=== PATIENT | female | born 1975 | race African-American/Black ===

== ENCOUNTER 2017-11-30 13:52 | Emergency (ER) | payer OTHER ==
[~2017-11-30] VITALS: Ht 170.2 cm; Wt 181.4 kg
[~2017-11-30 13:52] MED LIST: IBUPROFEN800 M1 PO; ULTRAM50 M1 PO
[2017-11-30 15:22] LABS: ABSOLUTE BASOPHIL COUNT 0 /CUMM (0.0-0.2); ABSOLUTE EOSINOPHIL COUNT 0 /CUMM (0.0-0.7); ABSOLUTE GRANULOCYTE CT 10.5 /CUMM (1.4-6.5); ABSOLUTE LYMPH COUNT 1.3 /CUMM (1.2-3.4); ABSOLUTE MONOCYTE COUNT 0.1 /CUMM (0.10-0.60); BASOPHIL % 0.2 % (0.0-2.0); EOSINOPHIL % 0 % (0-5); HEMATOCRIT 40.5 % (37-47); MEAN CORPUSCULAR HGB 28.2 PG (27.0-31.0); MEAN CORPUSCULAR VOLUME 85.5 FL (81.0-99.0); MEAN PLATELET VOLUME 9.9 FL (7.4-10.4); PLATELET COUNT 208 /CUMM (130-400); RBC DISTRIBUTION WIDTH 14.5 % (11.5-14.5); RED BLOOD CELL CT 4.73 /CUMM (4.20-5.40); WHITE BLOOD CELL COUNT 11.9 /CUMM (4.8-10.8)
[2017-11-30 15:24] LABS: GRANULOCYTE % 88.4 % (42.2-75.2)
[2017-11-30] MEDS ORDERED: ALEVE220 M2 PO (15:40)
--- NOTE | 2017-11-30 15:52 | ED GI/GU/ABDOMINAL COMPLAINT ---
History of Present Illness General Chief Complaint: General Adult Stated Complaint: MULTIPLE COMPLAINTS "CARLOS MANUEL BEEN DRINKING LAST NIGHT" Source: patient, family Exam Limitations: no limitations Vital Signs & Intake/Output Vital Signs & Intake/Output Vital Signs Date Time Temp Pulse Resp B/P B/P Pulse O2 O2 Flow FiO2 Mean Ox Delivery Rate 11/30 1618 98.3 70 18 143/73 98 Room Air 11/30 1404 97.3 71 18 185/98 99 Room Air Room Air Allergies Coded Allergies: NO KNOWN ALLERGIES (06/10/12) Reconcile Medications Ibuprofen 800 MG TABLET 1 TAB PO TID pain Naproxen Sodium (Aleve) 220 MG TABLET 2 TAB PO PRN PAIN (Reported) Oxycodone HCl/Acetaminophen (Percocet 5-325 MG Tablet) 5 MG-325 MG TABLET 1-2 TAB PO BID pain Tamsulosin HCl (Flomax) 0.4 MG CAP.ER.24H 1 CAP PO DAILY kidney stone Triage Note: PT TO ED WITH FAMILY WITH C/O LEFT ABD PAIN,NAUSEA AND VOMITING SINCE 0600, DENIES DIARRHEA. Triage Nurses Notes Reviewed? yes LMP (ages 10-50): date (11/23/17) ? N Is pt currently ? No Onset: Morning Duration: hour(s):, constant Timing: multiple episodes today Quality/Severity: stabbing Severity Numbers: 10 Location: epigastric, left lower quadrant, left upper quadrant Radiation: back Activities at Onset: rest, sleep Prior Abdominal Problems: none Sexually Active: Yes Last Time You Were Sexual: less than 2 months ago Sexual Orientation: Heterosexual Use of Protection: No Modifying Factors: Worsens With: breathing, palpation. HPI: PATIENT IS A 42 Y/O FEMALE WITH NO PAST MEDICAL HISTORY, PRESENTING FOR ACUTE ONSET OF LEFT SIDED ABDOMINAL PAIN S/P NIGHT OF DRINKING WITH FRIENDS. PATIENT STATES THAT SHE HAD 5-6 DRINKS OF TEQUILA LAST NIGHT AND WOKE UP WITH N/V/D. THERE WAS NO BLOOD OR MUCOUS IN HER VOMIT OR DIARRHEA. SHE STATES IT IS A SHARP PAIN, 10/10 AND RADIATES FROM HER L ABDOMEN TO HE LEFT FLANK. SHE REPORTS FEVER , CHILLS, DIAPHORESIS, DIZZINESS, AND URINARY FREQUENCY. LMP WAS ONE WEEK AGO AND LAST ORAL INTAKE WAS A TURKEY AND CHEESE SANDWICH YESTERDAY. Past History Travel History Traveled to [place] past 21 day No Medical History Any Pertinent Medical History? see below for history Neurological: NONE EENT: NONE Cardiovascular: NONE Respiratory: NONE Gastrointestinal: NONE Hepatic: NONE Renal: NONE Musculoskeletal: NONE Psychiatric: NONE Endocrine: NONE Blood Disorders: NONE Cancer(s): NONE REGIONAL EDUCATION COORDINATOR/Reproductive: NONE Tetanus Vaccine: 06/09/12 Surgical History Surgical History: non-contributory Psychosocial History What is your primary language Turkmen Tobacco Use: Current Not Daily ETOH Use: occasional use Illicit Drug Use: denies illicit drug use Family History Comment: HTN, HLD, DM TYPE 2, AND DIVERTICULITIS ON BOTH SIDES OF THE FAMILY. Hx Contributory? No Sexual History Sexually Active Yes # of partners 1 Sexual Orientation Heterosexual Use of Protection No Review of Systems Review of Systems Constitutional: Reports: no symptoms. EENTM: Reports: no symptoms. Respiratory: Reports: no symptoms. Cardiovascular: Reports: no symptoms. GI: Reports: see HPI. Genitourinary: Reports: no symptoms. Musculoskeletal: Reports: no symptoms. Skin: Reports: no symptoms. Neurological/Psychological: Reports: no symptoms. Hematologic/Endocrine: Reports: no symptoms. Immunologic/Allergic: Reports: no symptoms. All Other Systems: Reviewed and Negative Physical Exam Physical Exam General Appearance: well developed/nourished, alert, awake, moderate distress, obese Head: atraumatic, normal appearance Eyes: Bilateral: normal appearance. Neck: normal inspection, supple Respiratory: normal breath sounds, chest non-tender, no respiratory distress Cardiovascular: regular rate/rhythm Peripheral Pulses: 2+ radial (R), 2+ radial (L), 2+ tibialis posterior (R), 2+ tibialis posterior ( L), 2+ dorsalis pedis (R), 2+ dorsalis pedis (L) Gastrointestinal: normal bowel sounds, soft, no organomegaly, tenderness Rectal: deferred Back: CVA tenderness (L) Extremities: normal range of motion Skin: intact, normal color, warm/dry Core Measures ACS in differential dx? No Sepsis Present: No Sepsis Focused Exam Completed? No Progress Differential Diagnosis: appendicitis, bowel obstruction, cholecystitis, diverticulitis, kidney stone, pancreatitis, peptic ulcer, PUD/GERD, perforated viscous, UTI/pyelo Plan of Care: Orders Procedure Date/time Status LACTIC ACID 11/30 1551 Complete Add-on Test (ER Only) 11/30 1530 Active HUMAN BETA HCG SCREEN 11/30 1510 Complete URINE 11/30 1409 Complete URINALYSIS 11/30 1409 Complete LIPASE 11/30 1409 Complete COMPREHENSIVE METABOLIC PANEL 11/30 140 Complete CBC WITHOUT DIFFERENTIAL 11/30 1408 Complete AMYLASE 11/30 140 Complete Laboratory Tests 11/30/17 1552: Lactic Acid 2.3 H 11/30/17 1542: Urinalysis MOD H, Urine Color YEL, Urine Clarity HAZY H, Urine pH 6.0, Ur Specific [place] >= 1.030, Urine Protein 30 H, Urine Ketones 15 H, Urine Nitrite NEG, Urine Bilirubin NEG, Urine Urobilinogen 0.2, Ur Leukocyte Esterase NEG, Ur Microscopic SEDIMENT EXAMINED, Urine RBC 5-10 H, Urine WBC RARE, Ur Epithelial Cells RARE, Urine Crystals 3+ UR AC H, Urine Bacteria FEW H, Urine Mucus MOD H, Urine Hemoglobin LARGE H, Urine Glucose NEG, Urine Test NEGATIVE 11/30/17 1510: Anion Gap 17 H, Estimated GFR > 60, BUN/Creatinine Ratio 23.3, Glucose 137 H, Calcium 9.5, Total Bilirubin 1.2, AST 30, ALT 48, Alkaline Phosphatase 57, Total Protein 7.9, Albumin 4.8, Globulin 3.1, Albumin/Globulin Ratio 1.5, Amylase 60, Lipase 309 H, Total Beta HCG NEGATIVE, CBC w Diff MAN DIFF ORDERED, RBC 4.73, MCV 85.5, MCH 28.2, RDW 14.5, MPV 9.9, Gran % 88.4 H, Lymphocytes % 10.8 L, Monocytes % 0.6 L, Eosinophils % 0, Basophils % 0.2, Absolute Granulocytes 10.5 H, Absolute Lymphocytes 1.3, Absolute Monocytes 0.1, Absolute Eosinophils 0, Absolute Basophils 0, Platelet Estimate VERIFIED BY SMEAR, Stomatocytes 1+, PUBS MCHC 33.0 Diagnostic Imaging: Viewed by Me: CT Scan. Discussed w/RAD: CT Scan. Radiology Impression: PATIENT: CINDA ALLEN PRESENT AGE: 42 PATIENT ACCOUNT NO: [id number] : 76 LOCATION: [facility] ORDERING PHYSICIAN: Filiberto CLARK SERVICE DATE: 11/30/17-1530 EXAM TYPE: CAT - CT ABD & PELVIS W/O IV CONTRAS EXAMINATION: CT ABDOMEN AND PELVIS WITHOUT CONTRAST CLINICAL INFORMATION: Left-sided abdominal pain/flank pain. Family history of kidney stones. COMPARISON: None. TECHNIQUE: Multidetector volumetric imaging was performed from the superior aspect of the liver through the pubic symphysis. Sagittal and coronal reformatted images were obtained on the technologist workstation. DLP: 1616.10 mGy-cm. FINDINGS: LUNG BASES: There is a tiny 2 mm solid noncalcified nodule seen in the right middle lobe (series 3, image 29), doubtful clinical significance. Lung bases are otherwise unremarkable. LIVER, GALLBLADDER, AND BILIARY TREE: The liver is enlarged, measuring 23.8 cm longitudinally and extending across the midline into the left upper quadrant. No focal hepatic lesion on noncontrast imaging. No biliary ductal dilatation is present. The gallbladder is unremarkable with no evidence of radiopaque gallstones, gallbladder wall thickening, or obvious pericholecystic inflammatory changes. PANCREAS, SPLEEN, ADRENAL GLANDS: Unremarkable on noncontrast imaging. KIDNEYS AND URETERS: The right kidney is normal in size, shape, and attenuation. No right-sided hydronephrosis, hydroureter, or calculi seen. No right-sided perinephric stranding. The left kidney is asymmetrically enlarged and edematous and demonstrates moderate surrounding perinephric stranding and mild hydronephrosis due to a subtle 2 to 3 mm calcification seen in the proximal left ureter (coronal series 602, image 60) . No other definite ureteral calculi are seen though evaluation is limited, especially in the pelvis due to extensive beam hardening artifact and quantum mottle related to the patient's large body habitus. BLADDER: Bladder is decompressed and suboptimally assessed. Lower right pelvic 2 to 3 mm calcification is seen (series 2, image 90), poorly localized due to surrounding artifact. This is in region of the right ureterovesical junction, but is most likely outside of the distal right ureter since no right-sided hydroureteronephrosis is seen. PELVIC VISCERA: Uterus is mildly enlarged and deviated towards the right side, measuring 13.8 x 7.0 x 9.2 cm. Left ovary is unremarkable. Right ovary is not distinctly visualized, but no distinct right adnexal mass is seen. GASTROINTESTINAL TRACT: Moderate sigmoid colonic diverticulosis is seen with no evidence of acute diverticulitis. The small and large bowel are unremarkable. The appendix is not visualized but no focal inflammatory mass is seen in the right lower quadrant. ABDOMINAL WALL: There is a small fat-containing umbilical hernia. Large anterior abdominal wall fatty pannus is seen. LYMPH NODES, VASCULAR: Unremarkable. OSSEOUS STRUCTURES: Moderate vertebral spondylosis is seen in the lower thoracic and upper lumbar spine. Moderate facet arthropathy is seen in the mid and lower lumbar spine. No suspicious bone findings. IMPRESSION: 1. Limited exam given the patient's large body habitus and resultant significant artifact on the images. 2. Asymmetrically enlarged and edematous left kidney is seen with mild hydronephrosis due to a subtle 2 to 3 mm calcification in the proximal left ureter. 3. Nonspecific 2 to 3 mm calcification is also seen in the right hemipelvis, in region of the right ureterovesical junction. This may be outside of the distal right ureter or in the distal right ureter in region of the ureterovesical junction. No right hydronephrosis or hydroureter ureter is seen. 4. No other renal or ureteral calculi seen. 5. Mild hepatomegaly. 6. Moderate sigmoid colonic diverticulosis. 7. Small fat-containing umbilical hernia. DICTATED BY: Lesvia Heller MD DATE/ TIME DICTATED:11/30/171719 FAMILY DEVELOPMENT SPECIALIST:TERRY DATE/TIME TRANSCRIBED: 11/30/171719 CONFIDENTIAL, DO NOT COPY WITHOUT APPROPRIATE AUTHORIZATION. < Electronically signed in Other Vendor System> SIGNED BY: Lesvia Heller MD 11/30/17 1745 Initial ED EKG: none Comments: 11/30/2017 6:31:59 PM Patient clinically looks well. Patient is in no apparent distress. Patient is nontoxic-appearing. Patient's pain is 0 at this moment. She feels ready for discharge. Patient has acute kidney stone. Told to follow up with urology. Return if any concerns worsening symptoms. Departure Departure Disposition: HOME OR SELF CARE Condition: Stable Clinical Impression Primary Impression: Kidney stone on left side Referrals: Elia Corral MD. Patient Has No Primary Care Dr (PCP/Family) Additional Instructions: Take Percocet, ibuprofen, and Flomax as prescribed. Follow-up with urologist. Return if any concerns worsening symptoms. Please go over all results of today's visit with your primary care doctor. Contact your primary care doctor to let them know you were here in the emergency room. There may be nonspecific findings which may not be related to your visit today here in the emergency room but may require further evaluation and chronic monitoring by your primary care doctor. If you had a laceration today the chance of foreign body always remains. You should follow-up with your primary care doctor for recheck in 3-5 days for a wound check. If you had an x-ray done there is a chance that a fracture could have been missed on initial read and you should follow-up with your primary care doctor for repeat x-rays if symptoms persist. If your blood pressure was elevated here in the emergency room please have rechecked by [facility] primary care doctor within the next 48. If you were prescribed a narcotic here in the emergency room or any type of controlled substances you're not allowed to drive while taking this medication or operate any type of heavy machinery. Narcotics can make you feel lightheaded dizziness nausea and can cause constipation. You may need to garbage pick up worker a stool softener. Thank you for choosing [facility] emergency room. Please return to the emergency room immediately if you have any other concerns worsening of symptoms. Departure Forms: Customer Survey General Discharge Information Prescriptions: Current Visit Scripts Oxycodone HCl/Acetaminophen (Percocet 5-325 MG Tablet) 1-2 TAB PO BID #10 TAB Ibuprofen 1 TAB PO TID #30 TAB Tamsulosin HCl (Flomax) 1 CAP PO DAILY #15 CAP
--- NOTE | 2017-11-30 17:45 | CT SCAN REPORT ---
EXAMINATION: CT ABDOMEN AND PELVIS WITHOUT CONTRAST CLINICAL INFORMATION: Left-sided abdominal pain/flank pain. Family history of kidney stones. COMPARISON: None. TECHNIQUE: Multidetector volumetric imaging was performed from the superior aspect of the liver through the pubic symphysis. Sagittal and coronal reformatted images were obtained on the technologist workstation. DLP: 1616.10 mGy-cm. FINDINGS: LUNG BASES: There is a tiny 2 mm solid noncalcified nodule seen in the right middle lobe (series 3, image 29), doubtful clinical significance. Lung bases are otherwise unremarkable. LIVER, GALLBLADDER, AND BILIARY TREE: The liver is enlarged, measuring 23.8 cm longitudinally and extending across the midline into the left upper quadrant. No focal hepatic lesion on noncontrast imaging. No biliary ductal dilatation is present. The gallbladder is unremarkable with no evidence of radiopaque gallstones, gallbladder wall thickening, or obvious pericholecystic inflammatory changes. PANCREAS, SPLEEN, ADRENAL GLANDS: Unremarkable on noncontrast imaging. KIDNEYS AND URETERS: The right kidney is normal in size, shape, and attenuation. No right-sided hydronephrosis, hydroureter, or calculi seen. No right-sided perinephric stranding. The left kidney is asymmetrically enlarged and edematous and demonstrates moderate surrounding perinephric stranding and mild hydronephrosis due to a subtle 2 to 3 mm calcification seen in the proximal left ureter (coronal series 602, image 60). No other definite ureteral calculi are seen though evaluation is limited, especially in the pelvis due to extensive beam hardening artifact and quantum mottle related to the patient's large body habitus. BLADDER: Bladder is decompressed and suboptimally assessed. Lower right pelvic 2 to 3 mm calcification is seen (series 2, image 90), poorly localized due to surrounding artifact. This is in region of the right ureterovesical junction, but is most likely outside of the distal right ureter since no right-sided hydroureteronephrosis is seen. PELVIC VISCERA: Uterus is mildly enlarged and deviated towards the right side, measuring 13.8 x 7.0 x 9.2 cm. Left ovary is unremarkable. Right ovary is not distinctly visualized, but no distinct right adnexal mass is seen. GASTROINTESTINAL TRACT: Moderate sigmoid colonic diverticulosis is seen with no evidence of acute diverticulitis. The small and large bowel are unremarkable. The appendix is not visualized but no focal inflammatory mass is seen in the right lower quadrant. ABDOMINAL WALL: There is a small fat-containing umbilical hernia. Large anterior abdominal wall fatty pannus is seen. LYMPH NODES, VASCULAR: Unremarkable. OSSEOUS STRUCTURES: Moderate vertebral spondylosis is seen in the lower thoracic and upper lumbar spine. Moderate facet arthropathy is seen in the mid and lower lumbar spine. No suspicious bone findings. IMPRESSION: 1. Limited exam given the patient's large body habitus and resultant significant artifact on the images. 2. Asymmetrically enlarged and edematous left kidney is seen with mild hydronephrosis due to a subtle 2 to 3 mm calcification in the proximal left ureter. 3. Nonspecific 2 to 3 mm calcification is also seen in the right hemipelvis, in region of the right ureterovesical junction. This may be outside of the distal right ureter or in the distal right ureter in region of the ureterovesical junction. No right hydronephrosis or hydroureter ureter is seen. 4. No other renal or ureteral calculi seen. 5. Mild hepatomegaly. 6. Moderate sigmoid colonic diverticulosis. 7. Small fat-containing umbilical hernia.
[2017-11-30] MEDS ORDERED: PERCOCET 5-3251 EACH PO (18:33)
[2017-11-30] MEDS ORDERED: FLOMAX0.4 M1 PO (18:33)
[2017-11-30] MEDS ORDERED: IBUPROFEN800 M1 PO (18:33)
[2017-11-30 18:34] VITALS: BP 152/70
== END 2017-11-30 18:57 ==
LOC: ERH 13:52
PROVIDERS: Emergency Medicine
DX: N20.0 Calculus of kidney (principal)
CPT/HCPCS: 74176; 81001; 81025; 96374; J3101